=== PATIENT | female | born 1960 | race Two or more races ===

== ENCOUNTER 2018-03-13 12:45 | Emergency (ER) | payer SELFPAY ==
[~2018-03-13] VITALS: Ht 157.5 cm; Wt 100.7 kg
--- NOTE | 2018-03-13 12:50 | NUR ---
BIB SELF TO ER 10, CAME IN DUE TO LEFT SHOULDER PAIN. ON ROOM AIR AND TOLERATED WELL. BREATHING EVENLY. ALERT AND ORIENTED X 4, VERBALLY RESPONSIVE. KEPT COMFORTABLE AT THIS TIME. WILL CONTINUE TO MONITOR FOR SHAWN.
--- NOTE | 2018-03-13 13:04 | NUR ---
ALLYN CONROY AT BEDSIDE FOR EVAL.
[2018-03-13] MEDS ORDERED: ACETAMINOPHEN ES 500 MG TABLET ONE (13:29)
[2018-03-13] MEDS ORDERED: ACETAMINOPHEN 325 MG TABLET PO ONE (13:30)
--- NOTE | 2018-03-13 14:00 | NUR ---
Patient discharged to home in stable condition. Written and verbal after care instructions given. Patient verbalizes understanding of instruction. APPLIED SLING ON LT ARM, PT TRISHA WELL W/ GOOD CSM.
[2018-03-13 14:39] VITALS: BP 128/83
== END 2018-03-13 14:00 | disposition home or self-care (01) ==
LOC: ER 12:50
DX: M25.512 Pain in left shoulder (principal); Z98.890 Other specified postprocedural states
CPT/HCPCS: 73030; 99284; A4606; Z7610